=== PATIENT | female | born 1950 | race Caucasian/White ===

== ENCOUNTER → 2016-05-20 | Outpatient (CLI) | payer OTHER ==
--- NOTE | 2016-05-20 15:32 | MA ---
Screening Digital Mammogram Clinical Indications: Routine screening. Technique: Standard cephalocaudal and mediolateral oblique projections are obtained. This examinati on was processed by the [email or web address] computer aided detection system. Comparison: April 2015, March 2014 and October 2011 Breast density: C; The breast tissue is heterogeneously dense, which could obscure detection of small masses. Findings: CAD was reviewed. Developing density outer right breast seen on the CC view only. The remai nder the right and left breast are stable.. Impression: Developing density outer right breast. BI-RADS 0: Needs additional imaging evaluation, right breast.. Recommendation: Spot compression view, off midline cc views by 5 degrees and a true-lateral view. If persistent, proceed to ultrasound for further characterization and localization purposes.. [facility] will send a result letter to the patient. Negative mammography should not preclude additional workup of a clinically suspicious finding. The patient's information is entered into a reminder system with a target due date for her next mammo gram.
== END ==
LOC: BMCIMAGING 10:25
DX: Z12.31 Encounter for screening mammogram for malignant neoplasm of breast (principal)
CPT/HCPCS: G0202

== ENCOUNTER → 2016-05-27 | Outpatient (CLI) | payer OTHER ==
--- NOTE | 2016-05-27 14:02 | MA ---
Diagnostic Digital Mammogram Right Breast Clinical Indications: Follow up possible developing density. Technique: Compression was obtained in CC, rolled CC, and 90-degree lateral views of the right breas t. This examination is processed by the [employer] computer-aided detection system. Comparison: May 20, 2016; April 23, 2015; the studies dating back to October 29, 2009 Breast density: C; The breasts are heterogeneously dense, which may obscure small masses. Findings: CAD was reviewed. The density of concern appears to represent normal overlapping breast parenchymal tissue. No signifi cant abnormality seen. Impression: Benign findings. BI-RADS 2. These findings were communicated with the patient. Recommendation: Routine annual mammography is recommended in one year. Dense mammographic pattern limits the sensitivity of mammography in this patient. If there is a clini charley palpable abnormality, recommend additional imaging with ultrasound, if clinically indicated. [facility] will send a result letter to the patient. Negative mammography should not preclude additional workup of a clinically suspicious finding.
== END ==
LOC: BMCIMAGING 13:11
DX: R92.2 Inconclusive mammogram (principal)
CPT/HCPCS: G0206

== ENCOUNTER → 2017-05-31 | Outpatient (CLI) | payer OTHER | LOC: BMCIMAGING 08:24 | PROVIDERS: ATTEND Internal Medicine | DX: Z12.31 Encounter for screening mammogram for malignant neoplasm of breast (principal) ==

== ENCOUNTER → 2018-10-04 | Outpatient (CLI) | payer OTHER | LOC: BMCIMAGING 13:07 | PROVIDERS: ATTEND Internal Medicine | DX: Z12.31 Encounter for screening mammogram for malignant neoplasm of breast (principal) ==

== ENCOUNTER → 2018-10-20 | Outpatient (CLI) | payer OTHER | LOC: BMCIMAGING 11:15 ==